=== PATIENT | female | born 1950 | race Caucasian/White ===

== ENCOUNTER → 2017-02-12 | Outpatient (CLI) | payer OTHER ==
--- NOTE | 2017-02-12 15:35 | REPMRS ---
Patient History The patient states she had a clinical breast exam in 01/2017. Patient is postmenopausal and has history of other cancer at age 60. Family history of breast cancer in maternal grandmother at age 70. Benign stereotatic breast biopsy of the left breast, November 12, 2009. Took hormonal contraceptives for 2 years. Digital Woman Screen Mammo: February 12, 2017 - Exam #: [id number] Bilateral CC and MLO view(s) were taken. Technologist: Sheyla Reza, Technologist Prior study comparison: February 12, 2016, digital woman screen mammo performed at [facility]. January 22, 2015, digital woman screen mammo performed at [facility]. FINDINGS: There are scattered fibroglandular densities. There has been no change in the appearance of the mammogram from the prior studies. There is a mild amount of residual fibroglandular tissue which is fairly symmetric. There is no interval development of dominant mass, architectural distortion, or clustered microcalcification suggestive of malignancy. ASSESSMENT: BI-RADS/ACR category 1 mammogram. Negative. Recommendation Routine screening mammogram in 1 year (for women over age 40). This mammogram was interpreted with the aid of an FDA-approved computer-aided dectection system. Electronically Signed By: Riccardo Castillo MD 02/12/17 [id number]
== END ==
LOC: M WHC 13:06
PROVIDERS: ATTEND Nurse Practitioner Family
DX: Z12.31 Encounter for screening mammogram for malignant neoplasm of breast (principal)

== ENCOUNTER → 2017-06-29 | Outpatient (REF) | payer OTHER ==
[2017-06-29 18:23] LABS: FOLATE > 24.0 NG/ML; VITAMIN B12 LEVEL 1566 PG/ML
[2017-06-29 18:26] LABS: FERRITIN 277 NG/ML (8-252); IRON (FE) 81 UG/DL (50-170); PERCENT SATURATION 27.8 % (13.2-45.0); TOTAL IRON BINDING CAPACITY 291 UG/DL (250-450)
== END ==
LOC: M LAB REF 17:34
DX: N18.3 Chronic kidney disease, stage 3 (moderate) (principal); D63.1 Anemia in chronic kidney disease

== ENCOUNTER → 2017-07-29 | Outpatient (CLI) | payer MEDICARE, OTHER | LOC: M RAD 10:09 | DX: N18.3 Chronic kidney disease, stage 3 (moderate) (principal); N28.1 Cyst of kidney, acquired | CPT/HCPCS: 76775 ==

== ENCOUNTER → 2018-02-15 | Outpatient (CLI) | payer MEDICARE, OTHER | LOC: M WHC 13:23 | DX: Z12.31 Encounter for screening mammogram for malignant neoplasm of breast (principal); Z01.419 Encounter for gynecological examination (general) (routine) without abnormal findings (principal); Z92.89 Personal history of other medical treatment; Z92.0 Personal history of contraception; Z12.12 Encounter for screening for malignant neoplasm of rectum; Z80.3 Family history of malignant neoplasm of breast | CPT/HCPCS: 77067 ==

== ENCOUNTER → 2019-01-13 | Outpatient (REF) | payer MEDICARE, OTHER ==
[2019-01-13 18:03] LABS: FREE T4 1.17 NG/DL (0.76-1.46); THYROID STIMULATING HORMONE 3.23 uIU/ML (0.358-3.740)
== END ==
LOC: M LAB REF 17:01
PROVIDERS: ATTEND Internal Medicine Nephrology
DX: N18.3 Chronic kidney disease, stage 3 (moderate) (principal); Z68.41 Body mass index [BMI] 40.0-44.9, adult

== ENCOUNTER → 2019-01-20 | Outpatient (CLI) | payer MEDICARE, OTHER ==
--- NOTE | 2019-01-20 16:40 | REP ---
HISTORY: Chronic kidney disease. Followup renal cysts. COMPARISON: 07/29/2017 The right kidney measures 10 x 4.8 x 4.8 cm and the left kidney measures 10.9 x 4.8 x 5.2 cm. The kidneys are essentially unchanged from the prior exam. There is no significant change in the appearance of the renal cortical echoes. Cortical medullary differentiation is preserved. There is no hydronephrosis. There are no definite solid masses. There are multiple hypoechoic nearly anechoic round and oval shaped structures seen bilaterally. These were all present on the prior exam, however, there has been a slight increase in size in the largest cyst seen in the right kidney which previously measured 2.4 x 2.3 x 2 cm and today measures 3 x 2.7 x 2.3 cm. The other cystic areas seen in the right kidney have only increased in size minimally. The degree of posterior wall enhancement and increased through transmission is unchanged. The cystic structures seen in the left kidney are essentially unchanged with the exception of increased size particularly in the inferior pole cyst which previously measured 3.7 x 3.7 x 3.4 cm. Today this measures 4.3 x 3.7 x 3.7 cm. The superior pole cyst previously and other smaller cysts are unchanged. The urinary bladder could not be evaluated since it was decompressed. IMPRESSION: Findings as described above. Electronically Signed by William Hall DO 01/20/2019 04:59 P
== END ==
LOC: M RAD 12:57
PROVIDERS: ATTEND Internal Medicine Nephrology
DX: N18.3 Chronic kidney disease, stage 3 (moderate) (principal); N28.1 Cyst of kidney, acquired

== ENCOUNTER → 2019-02-18 | Outpatient (CLI) | payer MEDICARE, OTHER ==
--- NOTE | 2019-02-18 14:49 | REP ---
BILATERAL MAMMOGRAM WITH 3-D TOMOSYNTHESIS AND LEFT BREAST ULTRASOUND: CLINICAL HISTORY: Pain left axilla. Family history of breast cancer at age 70 in maternal grandmother. Tyrer-Cuzick lifetime risk of breast cancer 9.6%. MLO and CC views of both breasts performed with 3-D tomosynthesis. Comparison made with multiple prior exams most recent of which is 02/15/2018. There is mild scattered fibroglandular tissue unchanged since the prior exam. No new mass is seen. Oval nodule in the upper outer quadrant of the left breast is stable with an adjacent metallic clip from a benign sterotactic biopsy previously. No new mass or clustered microcalcifications are seen. Real-time sonographic evaluation of left axillary region is performed. No cystic or solid mass is seen. IMPRESSION: BIRADS 2: BI-RADS/ACR category 2 mammogram. Benign Findings. No new mass or clustered microcalcifications. No mammographic or sonographic evidence of mass at the site of pain in the left axillary region. Clinical correlation and followup is recommended. Recommend followup mammogram in 1 year. This mammogram was interpreted with the aid of an FDA-approved computer-aided detection system. The patient states he/she had a clinical breast exam in 01/2019. The patient letter being requested is M2. Electronically Signed by Riccardo Castillo MD 02/21/2019 09:34 A
== END ==
LOC: M RAD 09:58
PROVIDERS: ATTEND Nurse Practitioner Family
DX: N64.4 Mastodynia (principal)
CPT/HCPCS: 76642; 77066; G0279

== ENCOUNTER → 2020-01-03 | Outpatient (CLI) | payer MEDICARE, OTHER ==
[~2020-01-03] MED LIST: PROHANCE 279.3MG/ML 15ML VIAL As Ordered ONE
--- NOTE | 2020-01-09 14:53 | REP ---
MRI KIDNEYS WITH AND WITHOUT CONTRAST HISTORY: Renal cysts. COMPARISON: MRI 04/08/2012. TECHNIQUE: Multiple sequences obtained in the axial and coronal planes prior to and following the intravenous administration of 10 mL ProHance. FINDINGS: Multiple cysts are seen in each kidney. These have in general increased in size compared to the prior MRI. Several are subcentimeter in diameter. A dominant simple nonenhancing cyst is seen the posterior upper pole of the right kidney measuring 2.5 cm in diameter. There is an adjacent oval cyst with a thin internal septation, which is seen on the prior study in 2012 and has slightly increased in size, measuring approximately 1.7 x 0.7 cm. A hemorrhagic cyst is seen in the posterior left upper pole measuring 1.9 cm in diameter. This is benign. A dominant simple cyst, which does not enhance, is seen projecting from the lower pole cortex of the left kidney measuring 3.8 cm maximally. No suspicious enhancing mass is seen of either kidney. There is no hydronephrosis bilaterally. The visualized liver, spleen, adrenals, and pancreas are unremarkable. The patient has had a prior cholecystectomy. There is expected prominent of the common bile duct measuring 12 mm in maximum diameter. I see no adenopathy or free fluid in the visualized abdomen. There is a small hiatal hernia. IMPRESSION: Multiple bilateral renal cysts as discussed in detail above have benign features with no suspicious enhancing renal mass. MTDD
== END ==
LOC: M RAD 17:02
PROVIDERS: ATTEND Internal Medicine Nephrology
DX: N28.1 Cyst of kidney, acquired (principal)
CPT/HCPCS: 74183; A9576

== ENCOUNTER → 2020-02-29 | Outpatient (CLI) | payer MEDICARE, OTHER ==
--- NOTE | 2020-02-29 13:19 | REPMRS ---
Patient History The patient states she had a clinical breast exam in 03/18 Family history of breast cancer at age 70 in maternal grandmother. Benign stereotatic breast biopsy of the left breast, November 12, 2009. Took hormonal contraceptives for 2 years. Digital Woman Screen Mammo: February 29, 2020 - Exam #: [id number] Bilateral CC and MLO view(s) were taken. Technologist: Stephie Villafana, Technologist Prior study comparison: February 18, 2019, digital mammo diagnostic bilateral, performed at [facility]. February 15, 2018, bilateral digital woman screen mammo performed at [facility]. February 12, 2017, digital woman screen mammo performed at [facility]. FINDINGS: There are scattered fibroglandular densities. The Volpara volumetric breast density category is:B. There is a needle biopsy marker clip in the left breast. There has been no change in the appearance of the mammogram from the prior studies. There is a mild amount of scattered fibroglandular density which is fairly symmetric. There is no interval development of dominant mass, architectural distortion, or grouped microcalcification suggestive of malignancy. 3-D tomosynthesis shows no additional findings. Assessment: BI-RADS/ACR category 2 mammogram. Benign Findings. Recommendation Routine screening mammogram of both breasts in 1 year (for women over age 40). This patient's [facility] Lifetime Breast Cancer Risk is estimated at 9.1 %. This mammogram was interpreted with the aid of an FDA-approved computer-aided dectection system. Electronically Signed By: Gurpreet Armstrong MD 02/29/20 0211
== END ==
LOC: M WHC 10:46
PROVIDERS: ATTEND Nurse Practitioner Family
DX: Z01.419 Encounter for gynecological examination (general) (routine) without abnormal findings (principal); Z12.31 Encounter for screening mammogram for malignant neoplasm of breast; Z86.018 Personal history of other benign neoplasm; Z92.0 Personal history of contraception
CPT/HCPCS: 77063; 77067; G0101

== ENCOUNTER → 2020-07-19 | Outpatient (REF) | payer MEDICARE, OTHER ==
[2020-07-19 18:29] LABS: PERCENT SATURATION 21.5 % (13.2-45.0)
== END ==
LOC: M LAB REF 16:52
PROVIDERS: ATTEND Internal Medicine Nephrology
DX: N18.30 Chronic kidney disease, stage 3 unspecified (principal); D63.1 Anemia in chronic kidney disease

== ENCOUNTER → 2021-01-30 | Outpatient (REF) | payer MEDICARE, OTHER | LOC: M LAB REF 17:48 | PROVIDERS: ATTEND Internal Medicine Nephrology | DX: E83.42 Hypomagnesemia (principal) ==

== ENCOUNTER → 2021-03-04 | Outpatient (CLI) | payer MEDICARE, OTHER ==
--- NOTE | 2021-03-04 14:47 | REPMRS ---
Patient History The patient states she had a clinical breast exam in February 2021. Family history of breast cancer at age 70 in maternal grandmother. Benign stereotatic breast biopsy of the left breast, November 12, 2009. Took hormonal contraceptives for 2 years. Patient states no breast complaints today. Patient has signed MRS History Sheet. Digital Woman Screen Mammo: March 04, 2021 - Exam #: [id number] Bilateral CC and MLO view(s) were taken. Technologist: Stephie Villafana, Technologist Prior study comparison: February 29, 2020, bilateral digital woman screen mammo performed at [facility]. February 18, 2019, digital mammo diagnostic bilateral, performed at [facility]. FINDINGS: There are scattered fibroglandular densities. Screening. Digital screening (2D) mammography was performed bilaterally in the CC and MLO projections. Additionally, breast tomosynthesis (3D mammography) was performed bilaterally in the CC and MLO projections. Todays exam was compared to the prior exam/exams. By history, the patient has no complaints of a palpable breast abnormality or other significant breast complaints. The Volpara volumetric breast density category is B, there are scattered areas of fibroglandular densities. There is a biopsy clip, in a stable isodense mass, in the left breast. The breasts are unchanged in size and shape. There are no marybeth-soft tissue densities or spiculated masses. There is no internal architectural distortion. There are no suspicious marybeth-calcific clusters. Skin thickening or nipple retraction is not present. IMPRESSION: BI-RADS Category 2- Benign Findings. There is no evidence of malignant alteration of the breasts. Followup examination recommended in one year. This mammogram was read with the assistance of SnapMyAd,an FDA approved computer aided detection system for mammography. The lifetime Tyrer-Cuzick score is 8.6% Negative x-ray reports should not delay surgical consultation if a dominant or clinically suspicious mass is present. Not all breast cancers can be identified by mammography. Therefore, we recommend that you continue to perform regular breast self-examination and physical examination and then promptly contact your physician of any concerns or changes. Adenosis and dense breasts may obscure an underlying neoplasm. No significant changes when compared with prior studies. Assessment: BI-RADS/ACR category 2 mammogram. Benign Findings. Recommendation Routine screening mammogram of both breasts in 1 year. Electronically Signed By: Dennys Powell MD 03/04/21 2921
== END ==
LOC: M WHC 13:03
PROVIDERS: ATTEND Nurse Practitioner Women's Health
DX: Z01.419 Encounter for gynecological examination (general) (routine) without abnormal findings (principal); Z12.31 Encounter for screening mammogram for malignant neoplasm of breast; Z80.3 Family history of malignant neoplasm of breast; Z86.018 Personal history of other benign neoplasm; Z92.0 Personal history of contraception
CPT/HCPCS: 77063; 77067; G0101

== ENCOUNTER → 2021-09-10 | Outpatient (CLI) | payer MEDICARE, OTHER | LOC: M WHC 10:11 | PROVIDERS: ATTEND Family Medicine | DX: M81.0 Age-related osteoporosis without current pathological fracture (principal); M85.851 Other specified disorders of bone density and structure, right thigh ==

== ENCOUNTER → 2021-09-20 | Outpatient (CLI) | payer MEDICARE, OTHER ==
[2021-09-20 18:43] LABS: FREE T4 1.95 NG/DL (0.76-1.46); THYROID STIMULATING HORMONE 0.008 uIU/ML (0.358-3.740)
[2021-09-20 18:51] LABS: TOTAL 25(OH) VITAMIN D 46.9 NG/ML (30.0-100.0)
== END ==
LOC: M PLALAB 15:12
PROVIDERS: ATTEND Internal Medicine Endocrinology, Diabetes & Metabolism
DX: M81.0 Age-related osteoporosis without current pathological fracture (principal); Z79.899 Other long term (current) drug therapy

== ENCOUNTER 2021-10-07 07:27 | Emergency (ER) | payer MEDICARE, OTHER ==
[~2021-10-07] VITALS: Ht 162.6 cm; Wt 116.4 kg
[2021-10-07] MEDS ORDERED: LISI20TA35 (07:50)
[2021-10-07] MEDS ORDERED: CALC1CAP31 (07:50)
[2021-10-07] MEDS ORDERED: MELO7.5T35 (07:50)
[2021-10-07 14:05] VITALS: BP 156/71
== END 2021-10-07 14:27 | disposition home or self-care (01) ==
LOC: M ED 07:27
DX: M25.562 Pain in left knee (principal); I10 Essential (primary) hypertension; M81.0 Age-related osteoporosis without current pathological fracture; M72.2 Plantar fascial fibromatosis; Z79.899 Other long term (current) drug therapy

== ENCOUNTER → 2021-10-28 | Outpatient (CLI) | payer MEDICARE, OTHER ==
[~2021-10-28] MED LIST changes: +CALC1CAP31; +LISI20TA35; +MELO7.5T35; -PROHANCE 279.3MG/ML 15ML VIAL As Ordered ONE
== END ==
LOC: M EKG 13:01
PROVIDERS: ATTEND Family Medicine
DX: R00.0 Tachycardia, unspecified (principal)

== ENCOUNTER → 2021-10-31 | Outpatient (CLI) | payer MEDICARE, OTHER | LOC: M RAD 14:23 | PROVIDERS: ATTEND Internal Medicine Endocrinology, Diabetes & Metabolism | DX: E05.00 Thyrotoxicosis with diffuse goiter without thyrotoxic crisis or storm (principal) | CPT/HCPCS: 78012; A9516 ==

== ENCOUNTER → 2021-11-25 | Outpatient (CLI) | payer MEDICARE, OTHER ==
[2021-11-25 17:57] LABS: FREE T4 1.04 NG/DL (0.76-1.46); THYROID STIMULATING HORMONE 2.96 uIU/ML (0.358-3.740)
== END ==
LOC: M PLALAB 14:29
PROVIDERS: ATTEND Internal Medicine Endocrinology, Diabetes & Metabolism
DX: E05.00 Thyrotoxicosis with diffuse goiter without thyrotoxic crisis or storm (principal)

== ENCOUNTER → 2022-03-17 | Outpatient (CLI) | payer MEDICARE, OTHER | LOC: M WHC 09:02 | PROVIDERS: ATTEND Obstetrics & Gynecology | DX: Z12.31 Encounter for screening mammogram for malignant neoplasm of breast (principal) ==

== ENCOUNTER → 2022-08-14 | Outpatient (REF) | payer MEDICARE, OTHER ==
[2022-08-14 19:32] LABS: BACTERIA, URINE AUTO 1+ (NEGATIVE); RBC, URINE AUTO 2 /HPF (0-3); SQUAMOUS EPITHELIAL CELL UR AU 1 /HPF (0-6); WBC, URINE AUTO 1 /HPF (0-3)
== END ==
LOC: M LAB REF 17:24
PROVIDERS: ATTEND Internal Medicine Nephrology
DX: N18.31 Chronic kidney disease, stage 3a (principal)

== ENCOUNTER → 2022-10-30 | Outpatient (REF) | payer MEDICARE, OTHER ==
[2022-10-30 22:02] LABS: APPEARANCE, URINE HAZY (CLEAR); BACTERIA, URINE AUTO 1+ (NEGATIVE); BILIRUBIN, URINE AUTO NEGATIVE (NEGATIVE); BLOOD, URINE BLOOD NEGATIVE (NEGATIVE); COLOR, URINE YELLOW (YELLOW); GLUCOSE, URINE (UA) AUTO NEGATIVE (NEGATIVE); KETONE, URINE AUTO TRACE mg/dL (NEGATIVE); LEUKOCYTE ESTERASE, URINE AUTO 3+ (NEGATIVE); MUCUS, URINE SMALL (NEGATIVE); NITRITE, URINE AUTO NEGATIVE (NEGATIVE); PROTEIN, URINE AUTO NEGATIVE (NEGATIVE); RBC, URINE AUTO 11 /HPF (0-3); SPECIFIC GRAVITY URINE AUTO 1.018 (1.002-1.035); SQUAMOUS EPITHELIAL CELL UR AU 1 /HPF (0-6); UROBILINOGEN, URINE AUTO 0.2 mg/dL (0.0-2.0); WBC, URINE AUTO 69 /HPF (0-3)
[2022-10-30 23:14] LABS: GC DNA AMPLIFICATION NEGATIVE (NEGATIVE)
== END ==
LOC: M LAB REF 21:12
PROVIDERS: ATTEND Physician Assistant
DX: N39.0 Urinary tract infection, site not specified (principal)

== ENCOUNTER → 2022-11-08 | Outpatient (REF) | payer MEDICARE, OTHER | LOC: M WUC 17:33 | PROVIDERS: ATTEND Student in an Organized Health Care Education/Training Program | DX: R30.0 Dysuria (principal) ==

== ENCOUNTER → 2022-12-09 | Outpatient (REF) | payer MEDICARE, OTHER ==
[2022-12-09 18:28] LABS: APPEARANCE, URINE HAZY (CLEAR); BACTERIA, URINE AUTO NEGATIVE (NEGATIVE); BILIRUBIN, URINE AUTO NEGATIVE (NEGATIVE); BLOOD, URINE BLOOD NEGATIVE (NEGATIVE); COLOR, URINE AMBER (YELLOW); GLUCOSE, URINE (UA) AUTO NEGATIVE (NEGATIVE); KETONE, URINE AUTO TRACE mg/dL (NEGATIVE); LEUKOCYTE ESTERASE, URINE AUTO 1+ (NEGATIVE); MUCUS, URINE SMALL (NEGATIVE); NITRITE, URINE AUTO NEGATIVE (NEGATIVE); PROTEIN, URINE AUTO NEGATIVE (NEGATIVE); RBC, URINE AUTO 2 /HPF (0-3); SQUAMOUS EPITHELIAL CELL UR AU 2 /HPF (0-6); UROBILINOGEN, URINE AUTO 0.2 mg/dL (0.0-2.0); WBC, URINE AUTO 9 /HPF (0-3)
== END ==
LOC: M LAB REF 16:17
PROVIDERS: ATTEND Physician Assistant Medical
DX: N39.0 Urinary tract infection, site not specified (principal)

== ENCOUNTER → 2022-12-12 | Outpatient (REF) | payer MEDICARE, OTHER | LOC: M LAB REF 16:14 | PROVIDERS: ATTEND Family Medicine | DX: N39.0 Urinary tract infection, site not specified (principal) ==

== ENCOUNTER → 2023-01-13 | Outpatient (CLI) | payer MEDICARE, OTHER ==
[2023-01-13 16:48] LABS: THYROID STIMULATING HORMONE 2.405 uIU/ML (0.55-4.78)
== END ==
LOC: M PLALAB 13:21
PROVIDERS: ATTEND Internal Medicine Endocrinology, Diabetes & Metabolism
DX: E05.00 Thyrotoxicosis with diffuse goiter without thyrotoxic crisis or storm (principal); M81.0 Age-related osteoporosis without current pathological fracture

== ENCOUNTER → 2023-01-27 | Outpatient (CLI) | payer MEDICARE, OTHER | LOC: M WUC 14:27 | PROVIDERS: ATTEND Nurse Practitioner Family | DX: K56.41 Fecal impaction (principal); R30.0 Dysuria ==

== ENCOUNTER → 2023-07-23 | Outpatient (CLI) | payer MEDICARE, OTHER ==
[2023-07-23 18:59] LABS: CALCIUM LEVEL 9.7 MG/DL (8.3-10.6)
[2023-07-23 19:09] LABS: TOTAL 25(OH) VITAMIN D 46.2 NG/ML (20.0-100.0)
== END ==
LOC: M PLALAB 14:09
PROVIDERS: ATTEND Nurse Practitioner Family
DX: M81.0 Age-related osteoporosis without current pathological fracture (principal)

== ENCOUNTER → 2023-08-03 | Outpatient (CLI) | payer MEDICARE, OTHER | LOC: M WHC 11:14 | PROVIDERS: ATTEND Nurse Practitioner Family | DX: Z12.31 Encounter for screening mammogram for malignant neoplasm of breast (principal) ==

== ENCOUNTER → 2023-09-22 | Outpatient (CLI) | payer MEDICARE, OTHER | LOC: M WHC 09:55 | PROVIDERS: ATTEND Internal Medicine Endocrinology, Diabetes & Metabolism | DX: M81.0 Age-related osteoporosis without current pathological fracture (principal) ==

== ENCOUNTER 2024-01-11 06:43 | Day surgery (SDC) | payer MEDICARE, OTHER ==
[~2024-01-11] VITALS: Ht 162.6 cm; Wt 118.4 kg
[~2024-01-11 06:43] MED LIST changes: +B-12100010 PO; -CALC1CAP31; +CALC1CAP31 PO; +DARI7.5T11 PO; +ECOT81TA5 PO; +GALZ25CA PO; +IRON65TA2 PO; -LISI20TA35; +LISI20TA35 PO; +MAGN400C PO; +NS 250 ML IV ONE; +THERTAB52 PO
[2024-01-11] MEDS ORDERED: propofoL 200 MG/20 ML VIAL As Ordered ONE (07:05)
[2024-01-11] MEDS ORDERED: dexmedeTOMIDine (4MCG/ML)200MCG/50ML BTL (PRECEDEX) As Ordered ONE (07:05)
[2024-01-11] MEDS ORDERED: LIDOCAINE 2% 100MG/5ML SDV (FOR ANES.) As Ordered ONE (07:05)
[2024-01-11] MEDS ORDERED: GLYCOPYRROLATE INJ 0.2 MG/ML 2 ML VIAL As Ordered ONE (07:05)
[2024-01-11 08:13] VITALS: TEMP 98.4
[2024-01-11 08:30] VITALS: BP 126/61; O2SAT 96
== END 2024-01-11 08:37 | disposition home or self-care (01) ==
LOC: M OPP 06:43
PROVIDERS: ATTEND Internal Medicine Gastroenterology
DX: Z12.11 Encounter for screening for malignant neoplasm of colon (principal); K64.0 First degree hemorrhoids; K57.30 Diverticulosis of large intestine without perforation or abscess without bleeding; D50.9 Iron deficiency anemia, unspecified; Z98.84 Bariatric surgery status; I10 Essential (primary) hypertension; M19.90 Unspecified osteoarthritis, unspecified site; Z79.82 Long term (current) use of aspirin; Z79.899 Other long term (current) drug therapy
CPT/HCPCS: 43239; 88305; G0121; J1596

== ENCOUNTER → 2024-01-18 | Outpatient (REF) | payer MEDICARE, OTHER ==
[~2024-01-18] MED LIST changes: -NS 250 ML IV ONE
[2024-01-18 19:17] LABS: CALCIUM LEVEL 9.8 MG/DL (8.3-10.6); CREATININE FOR GFR 1.04 MG/DL (0.55-1.30); GLOMERULAR FILTRATION RATE 55.6 (>39); POTASSIUM SERUM 3.6 MMOL/L (3.5-5.1)
== END ==
LOC: M LAB REF 18:21 → M LABWUC 18:21
PROVIDERS: ATTEND Internal Medicine Endocrinology, Diabetes & Metabolism
DX: M81.0 Age-related osteoporosis without current pathological fracture (principal)

== ENCOUNTER → 2024-02-03 | Outpatient (REF) | payer MEDICARE, OTHER ==
[2024-02-03 13:54] LABS: FERRITIN 139.7 NG/ML (7.3-270.7)
[2024-02-03 13:55] LABS: PHOSPHORUS LEVEL 3.3 MG/DL (2.4-5.1)
[2024-02-03 13:56] LABS: PERCENT SATURATION 21.4 % (13.2-45.0); TOTAL 25(OH) VITAMIN D 45.5 NG/ML (20.0-100.0)
== END ==
LOC: M LAB REF 13:08
PROVIDERS: ATTEND Family Medicine
DX: Z98.84 Bariatric surgery status (principal); Z79.899 Other long term (current) drug therapy

== ENCOUNTER → 2024-07-28 | Outpatient (CLI) | payer MEDICARE, OTHER ==
[~2024-07-28] MED LIST changes: -GALZ25CA PO; +ZINC25CA2 PO
[2024-07-28 13:31] LABS: CALCIUM LEVEL 9.6 MG/DL (8.3-10.6); CREATININE FOR GFR 1.09 MG/DL (0.55-1.30); GLOMERULAR FILTRATION RATE 54.3 (>39); POTASSIUM SERUM 3.9 MMOL/L (3.5-5.1)
[2024-07-28 13:33] LABS: TOTAL 25(OH) VITAMIN D 54.6 NG/ML (20.0-100.0)
== END ==
LOC: M WUC 10:02
PROVIDERS: ATTEND Nurse Practitioner Family
DX: M81.0 Age-related osteoporosis without current pathological fracture (principal)

== ENCOUNTER → 2024-11-22 | Outpatient (CLI) | payer MEDICARE, OTHER ==
[2024-11-22 19:30] LABS: PLATELET COUNT, AUTOMATED 301 10^3/uL (150-450)
[2024-11-22 20:56] LABS: ERYTHROCYTE SEDIMENTATION RATE 16 mm/hr (0-30)
[2024-11-28 20:28] LABS: LYME TOTAL ANTIBODY CIA <= 0.90 Index (<=0.90)
== END ==
LOC: M WUC 13:37
PROVIDERS: ATTEND Physician Assistant
DX: M25.551 Pain in right hip (principal)

== ENCOUNTER → 2024-12-23 | Outpatient (CLI) | payer MEDICARE, OTHER ==
[~2024-12-23] MED LIST changes: +ISOVUE-300 61% 100 ML VIAL As Ordered ONE; +methylPREDNISolone 80 MG/ML SUSP 1 ML VIAL As Ordered ONE
== END ==
LOC: M RAD 13:12
PROVIDERS: ATTEND Physician Assistant
DX: M25.551 Pain in right hip (principal)
CPT/HCPCS: 20610; 77002; J0665; J1010; Q9967